=== PATIENT | male | born 2000 | race Caucasian/White ===

== ENCOUNTER 2018-05-08 02:39 | Emergency (ER) | payer BC, MEDICAID, OTHER ==
[~2018-05-08] VITALS: Ht 177.8 cm; Wt 78.0 kg
[2018-05-08] MEDS ORDERED: acetaminophen 325mg tablet PO ONE (05:50)
[2018-05-08 05:59] VITALS: BP 126/76
[2018-05-08] MEDS ORDERED: HYDR-3965 PO (06:20)
== END 2018-05-08 07:04 | disposition home or self-care (01) ==
LOC: ER 02:40
DX: S93.402A Sprain of unspecified ligament of left ankle, initial encounter (principal); Z88.0 Allergy status to penicillin; Z79.899 Other long term (current) drug therapy; X50.1XXA Overexertion from prolonged static or awkward postures, initial encounter; Y93.89 Activity, other specified; Y92.89 Other specified places as the place of occurrence of the external cause; Y99.8 Other external cause status
CPT/HCPCS: 29515; 73590; 73610; 99284

== ENCOUNTER 2021-07-22 19:44 | Emergency (ER) | payer MEDICAID, OTHER ==
[~2021-07-22] VITALS: Ht 180.3 cm; Wt 86.4 kg
[2021-07-22 19:51] VITALS: BP 131/80
== END 2021-07-22 21:14 | disposition home or self-care (01) ==
LOC: ER 19:44
DX: U07.1 COVID-19 (principal); Z88.0 Allergy status to penicillin; Z72.89 Other problems related to lifestyle
CPT/HCPCS: 93005; 99283